=== PATIENT | female | born 1960 ===

== ENCOUNTER 2017-10-05 15:37 | Emergency (ER) | payer OTHER ==
[2017-10-05] MEDS ORDERED: Apap-Butalbital-Caffeine 325-50-40mg Tab PO STA (16:51)
[2017-10-05] MEDS ORDERED: Apap-Butalbital-Caffeine 325-50-40mg Tab ONE (17:25)
--- NOTE | 2017-10-05 18:03 | CT ---
EXAM: CT Head Without Intravenous Contrast EXAM DATE/TIME: 10/05/2017 4:45 PM CLINICAL HISTORY: 57 years old, female; Pain; Headache; Headache not specified; Additional info: Persistent and worsening headache TECHNIQUE: Axial computed tomography images of the head/brain without intravenous contrast. All CT scans at this facility use one or more dose reduction techniques, viz.: automated exposure control; ma/kV adjustment per patient size (including targeted exams where dose is matched to indication; i.e. head); or iterative reconstruction technique. COMPARISON: There are no prior studies for comparison. FINDINGS: Brain: Ventricles are normal in size and configuration. There is no midline shift. There are no intra-axial or extra-axial mass lesions. There are no hemorrhages. There is mild enlargement of the sella, difficult to further evaluate.. There are no abnormal fluid collections. Lambert-white differentiation is maintained. Ventricles: See above. Bones: Cranial vault is intact. Soft tissues: unremarkable Sinuses: There is no acute sinusitis. Ears and mastoids: Middle ears and mastoids are unremarkable Orbits: Orbital contents are unremarkable. IMPRESSION: No acute intracranial abnormality, no bleed; mild enlargement of the sella difficult to further evaluate MRI suggested for further evaluation of the sella if clinically indicated
[2017-10-05] MEDS ORDERED: Tmp-Smz 800 mg-160 mg DS Tab PO STA (18:24)
--- NOTE | 2017-10-05 18:27 | C.PDOC ---
History Of Present Illness 57 year old female presents to the ER with a complaint of a headache many years that have recently worsened and an area of pain and swelling to the right forehead for the past several days. Patient reports her headache is associated with mild nausea and light sensitivity; she has taken tylenol in the past with improvement but with no improvement today. Patient notes she has also had chills but denies fever, neck pain/stiffness, vision change, facial droop, slurred speech, sensory changes, or extremity weakness. Time Seen by Provider: 10/05/17 16:03 Chief Complaint (Nursing): Headache History Per: Patient History/Exam Limitations: no limitations Onset/Duration Of Symptoms: Days Current Symptoms Are (Timing): Still Present Preceeding Symptoms: Known Migraine Symptoms Associated Symptoms: Photophobia, Nausea. denies: Blurred Vision, Vomiting, Extremity Weakness Recent travel outside of the [place]: No Past Medical History Reviewed: Historical Data, Nursing Documentation, Vital Signs Vital Signs: Last Vital Signs Temp 98.1 F 10/05/17 18:48 Pulse 83 10/05/17 18:48 Resp 20 10/05/17 18:48 BP 150/90 10/05/17 18:48 Pulse Ox 97 10/05/17 18:48 - Medical History PMH: HTN Surgical History: No Surg Hx Family History: States: Unknown Family Hx - Social History Hx Alcohol Use: No Hx Substance Use: No - Immunization History Hx Tetanus Toxoid Vaccination: No Hx Influenza Vaccination: Yes (2 weeks ago) Hx Pneumococcal Vaccination: No Review Of Systems Except As Marked, All Systems Reviewed And Found Negative. Gastrointestinal: Positive for: Nausea Skin: Positive for: Other (Swelling to right forehead) Neurological: Positive for: Headache, Other (Light sensitivity) Physical Exam - Physical Exam Appears: Non-toxic, No Acute Distress, Other (Anxious, mild pain) Skin: Normal Color, Warm, Dry, No Rash Head: Normacephalic, Other (right forehead 2cm pustule, tender with mild fluctuance) Eye(s): bilateral: Normal Inspection, PERRL, EOMI Oral Mucosa: Moist Chest: Symmetrical, No Tenderness Cardiovascular: Rhythm Regular Respiratory: Normal Breath Sounds, No Rales, No Wheezing Gastrointestinal/Abdominal: Soft, No Tenderness Neurological/Psych: Oriented x3, Normal Speech, Normal Cognition ED Course And Treatment O2 Sat by Pulse Oximetry: 98 (Room air) Pulse Ox Interpretation: Normal - CT Scan/US CT Head Other Rad Studies (CT/US): Read By Radiologist, Radiology Report Reviewed CT/US Interpretation: EXAM: CT Head Without Intravenous Contrast. EXAM DATE/ TIME: 10/05/2017 4:45 PM. CLINICAL HISTORY: 57 years old, female; Pain; Headache; Headache not specified; Additional info: Persistent and. worsening headache. TECHNIQUE: Axial computed tomography images of the head/brain without intravenous contrast. All CT scans at. this facility use one or more dose reduction techniques, viz.: automated exposure control; ma/kV. adjustment per patient size (including targeted exams where dose is matched to indication; i.e. head);. or iterative reconstruction technique. COMPARISON: There are no prior studies for comparison. FINDINGS: Brain: Ventricles are normal in size and configuration. There is no midline shift. There are no intraaxial. or extra -axial mass lesions. There are no hemorrhages. There is mild enlargement of the sella,. difficult to further evaluate.. There are no abnormal fluid collections. Lambert-white differentiation is. maintained. Ventricles: See above. Bones: Cranial vault is intact. Soft tissues: unremarkable. Sinuses: There is no acute sinusitis. Ears and mastoids: Middle ears and mastoids are unremarkable. Orbits: Orbital contents are unremarkable. IMPRESSION: No acute intracranial abnormality, no bleed; mild enlargement of the sella difficult to further evaluate. MRI suggested for further evaluation of the sella if clinically indicated Progress Note: CT head ordered. Patient discharged with keflex and bactrim, instructed to apply warm compress, and to follow up with PMD. Disposition Counseled Patient/Family Regarding: Studies Performed, Diagnosis, Need For Followup, Rx Given - Disposition Referrals: Courtney Manzano MD [Medical Doctor] - Disposition: HOME/ ROUTINE Disposition Time: 18:25 Condition: STABLE Additional Instructions: NECESITAS LEOLA MRI AMBULATORIA DEL CEREBRO SIGA CON CROSS MDICO EN 1-2 RESENDEZ, Y OBTN LA PRESCRIPCIN PARA MRI USE ANTIBITICOS HASTA QUE HAYA TERMINADO APLICA COMPRESAS CALIENTES AL TERRELL REGRESE AL NELLI DE EMERGENCIA SI LOS SNTOMAS EMPEORAN YOU NEED AN OUTPATIENT MRI OF THE BRAIN FOLLOW UP WITH YOUR DOCTOR IN 1-2 DAYS, AND GET PRESCRIPTION FOR MRI USE ANTIBIOTICS UNTIL FINISHED APPLY WARM COMPRESSES TO AREA RETURN TO EMERGENCY ROOM IF SYMPTOMS WORSEN Prescriptions: Acetaminophen/Butalbital/Caf [Fioricet] 1 tab PO TID PRN #20 tab PRN Reason: Headache Cephalexin [Keflex] 500 mg PO BID #14 capsule Sulfamethoxazole/Trimethoprim [Bactrim DS 800 mg-160 mg] 1 tab PO BID #14 tab Instructions: Abscess (ED), General Headache (ED) Forms: [employer] (Slovak) Print Language: ENGLISH - POA Present On Arrival: None - Clinical Impression Clinical Impression: Abscess of forehead, Chronic headaches - Scribe Statement The provider has reviewed the documentation as recorded by the Scribe Jan Younger All medical record entries made by the Scribe were at my direction and personally dictated by me. I have reviewed the chart and agree that the record accurately reflects my personal performance of the history, physical exam, medical decision making, and the department course for this patient. I have also personally directed, reviewed, and agree with the discharge instructions and disposition.
[2017-10-05] MEDS ORDERED: Tmp-Smz 800 mg-160 mg DS Tab ONE (18:44)
[2017-10-05 18:48] VITALS: BP 150/90; PULSE 83; RESP 20; TEMP 98.1
[2017-10-05 19:24] VITALS: O2SAT 98
== END 2017-10-05 18:49 | disposition home or self-care (01) ==
LOC: C.ER 15:37
DX: L02.01 Cutaneous abscess of face (principal); R51 Headache; I10 Essential (primary) hypertension